=== PATIENT | female | born 1980 | race Caucasian/White ===

== ENCOUNTER 2018-01-30 17:02 | Emergency (ER) | payer OTHER ==
[~2018-01-30] VITALS: Ht 160 cm; Wt 69.0 kg
[~2018-01-30 17:02] MED LIST: ACETAMINOPHEN-1 EAC1 PO; ALBUTEROL2.5 MG/0.1 INH; ATIVAN0.5 MG; AUGMENTIN 875875 MG PO; AZITHROMYCIN 2250 MG PO; BENADRYL25 MG; CARAFATE 1 GM TA1 G1; CLONAZEPAM 0.50.5 M1 PO; CLONAZEPAM 1 MG1 M1 PO; FLORINEF ACETA0.1 MG PO; HYDROCODONE-ACE15 ML; IBUPROFEN 400400 M1 PO; KLOR-CON 1010 MEQ PO; LEVAQUIN 500 M500 MG PO; MAGOX 400400 MG PO; MUCINEX600 MG PO; NAPROSYN500 MG PO; NORCO 5-325 TA1 EACH PO; NYQUIL D COLD295 ML PO; PAXIL10 MG PO; POTASSIUM20; POTASSIUM40 MEQ/11 PO; PREDNISONE 20 M20 M1 PO; PREDNISONE50 MG PO; PRILOSEC10 MG PO; PROAIR HFA8.5 GM INH; PROZAC 20 MG20 MG; ROBAXIN500 MG PO; SENNA S TABLET1 EACH PO; TESSALON PERLE100 MG PO; TUSSIONEX PENN473 ML PO; TUSSIONEX PENNKI1 ML PO; TYLENOL325 MG; VENTOLIN HFA 1818 GM INH; ZOFRAN ODT4 MG PO; ZOLOFT25 MG PO; ZPAK PO
[2018-01-30] MEDS ORDERED: ZANAFLEX2 MG PO (17:14)
[2018-01-30 17:39] LABS: HEMATOCRIT 43.4 % (37.0-47.0); HEMOGLOBIN 15.2 gm/dL (12.0-15.0); MCH 31.8 pg (26.0-34.0); MCV 90.9 fL (80.0-100.0); MPV 7.7 fl. (7.2-11.1); NUCLEATED RBCS 0 /100WBC; PLATELET COUNT* 155 thou/uL (150-400); RBC 4.78 mil/uL (4.20-5.00); RDW-CV 12.3 % (10.5-14.5); WBC 8.7 thou/uL (4.0-11.0)
[2018-01-30 17:42] LABS: URINE BILIRUBIN NEGATIVE (Negative); URINE BLOOD 1+ (Negative); URINE CLARITY CLEAR; URINE COLOR YELLOW; URINE GLUCOSE-RANDOM NEGATIVE (Negative); URINE KETONES NEGATIVE (Negative); URINE LEUKOCYTES-REFLEX NEGATIVE (Negative); URINE NITRITE-REFLEX NEGATIVE (Negative); URINE PROTEIN NEGATIVE (Negative); URINE SPECIFIC GRAVITY 1.015 (1.005-1.030); URINE UROBILINOGEN 0.2 E.U./dl (0.2-1.0)
[2018-01-30 17:48] LABS: ANION GAP 8 mmol/L (7-16); BUN 8 mg/dL (7-18); CALCIUM 9.1 mg/dL (8.5-10.1); CHLORIDE 101 mmol/L (98-107); CO2 28 mmol/L (21-32); CREATININE 0.8 mg/dL (0.6-1.3); GLUCOSE 103 mg/dL (70-99); SODIUM 137 mmol/L (136-145)
[2018-01-30 17:54] LABS: ALBUMIN 3.4 g/dL (3.4-5.0); ALKALINE PHOSPHATASE 95 U/L (46-116); LIPASE 93 U/L (73-393); SGOT 18 U/L (15-37); SGPT 24 U/L (30-65); TOTAL BILIRUBIN 0.4 mg/dL (<0.1-1.0); TOTAL PROTEIN 8.3 g/dL (6.4-8.2); TROPONIN-I LEVEL <0.06 ng/mL (<0.06)
[2018-01-30 18:00] LABS: BACTERIA-REFLEX 1-9 Few /HPF (None Seen); CASTS None Seen /LPF (None Seen); CRYSTALS None Seen /LPF (None Seen); SQUAMOUS 0-3 Few /LPF (0-3); URINE RBC 0-2 Rare /HPF (0-2); URINE WBC-REFLEX 0-5 Rare /HPF (0-5)
[2018-01-30 18:02] LABS: ABSOLUTE LYMPHOCYTES 0.6 thou/uL (0.8-5.3); ABSOLUTE MONOCYTES 0.5 thou/uL (0.0-1.2); ABSOLUTE NEUTROPHILS 7.6 thou/uL (1.6-8.1)
[2018-01-30 18:03] LABS: PLATELET ESTIMATE ADEQUATE
[2018-01-30] MEDS ORDERED: HYDROCODONE-AP1 EAC6 PO (18:17)
[2018-01-30 18:51] VITALS: BP 116/70
== END 2018-01-30 18:54 | disposition home or self-care (01) ==
LOC: M.ERS 17:02
PROVIDERS: Physician Assistant
DX: R10.12 Left upper quadrant pain (principal); J45.909 Unspecified asthma, uncomplicated; F41.9 Anxiety disorder, unspecified; F17.210 Nicotine dependence, cigarettes, uncomplicated; Z90.710 Acquired absence of both cervix and uterus; Z90.49 Acquired absence of other specified parts of digestive tract; Z98.890 Other specified postprocedural states; Z91.041 Radiographic dye allergy status; Z91.040 Latex allergy status; Z88.8 Allergy status to other drugs, medicaments and biological substances; Z88.5 Allergy status to narcotic agent; Z88.6 Allergy status to analgesic agent

== ENCOUNTER 2018-08-27 15:22 | Emergency (ER) | payer OTHER ==
[~2018-08-27] VITALS: Ht 160 cm; Wt 71.7 kg
[~2018-08-27 15:22] MED LIST changes: +HYDROCODONE-AP1 EAC6 PO; +ZANAFLEX2 MG PO
[2018-08-27] MEDS ORDERED: FLEXERIL PO (15:31)
[2018-08-27 16:13] LABS: ABSOLUTE LYMPHOCYTES 2.3 thou/uL (0.8-5.3); ABSOLUTE MONOCYTES 0.4 thou/uL (0.0-1.2); ABSOLUTE NEUTROPHILS 4.3 thou/uL (1.6-8.1); BASOPHILS 0.3 %; EOSINOPHILS 0.3 %; HEMATOCRIT 43.1 % (37.0-47.0); LYMPHOCYTES 32.3 %; MCH 31.2 pg (26.0-34.0); MCHC 34.7 g/dL (28.0-37.0); MCV 89.7 fL (80.0-100.0); MPV 8.1 fl. (7.2-11.1); NUCLEATED RBCS 0 /100WBC; PLATELET COUNT* 219 thou/uL (150-400); POLYS 61.1 %; RDW-CV 12.5 % (10.5-14.5); WBC 7.1 thou/uL (4.0-11.0)
[2018-08-27 16:18] LABS: ANION GAP 8 mmol/L (7-16); BUN 8 mg/dL (7-18); CHLORIDE 104 mmol/L (98-107); CO2 25 mmol/L (21-32); CREATININE 0.9 mg/dL (0.6-1.3); GLUCOSE 124 mg/dL (70-99); POTASSIUM 3.4 mmol/L (3.5-5.1); SODIUM 137 mmol/L (136-145)
[2018-08-27 16:25] LABS: ALBUMIN 3.5 g/dL (3.4-5.0); ALKALINE PHOSPHATASE 90 U/L (46-116); LIPASE 119 U/L (73-393); SGOT 16 U/L (15-37); SGPT 18 U/L (30-65); TOTAL BILIRUBIN 0.2 mg/dL (<0.1-1.0); TOTAL PROTEIN 7.8 g/dL (6.4-8.2); TROPONIN-I LEVEL <0.06 ng/mL (<0.06)
[2018-08-27 16:34] LABS: URINE BILIRUBIN NEGATIVE (Negative); URINE BLOOD TRACE (Negative); URINE CLARITY CLEAR; URINE COLOR STRAW; URINE GLUCOSE-RANDOM NEGATIVE (Negative); URINE KETONES NEGATIVE (Negative); URINE LEUKOCYTES-REFLEX NEGATIVE (Negative); URINE NITRITE-REFLEX NEGATIVE (Negative); URINE PROTEIN NEGATIVE (Negative); URINE SPECIFIC GRAVITY <= 1.005 (1.005-1.030); URINE UROBILINOGEN 0.2 E.U./dl (0.2-1.0)
[2018-08-27 16:42] LABS: AMP/METHAMP Negative (Negative); BARBITURATES Negative (Negative); BENZODIAZEPINES Negative (Negative); COCAINE Negative (Negative); METHADONE Negative (Negative); OPIATES Negative (Negative); PCP Negative (Negative); THC Negative (Negative)
[2018-08-27 20:23] VITALS: BP 106/62
--- NOTE | 2018-08-28 10:49 | EKG ---
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1980 Requested By: Jennifer Ngo Order Number: [id number] MD: Antelmo Peralta Measurements Intervals Cunningham Rate: 113 P: 67 CO: 142 QRS: 58 QRSD: 79 T: 28 QT: 317 QTc: 435 Interpretive Statements Sinus tachycardia Probable left atrial enlargement Compared to ECG 04/02/2017 17:02:30 No significant changes Electronically Signed On 08-28-2018 10:49:11 MACHINE WORKER by Antelmo Peralta [email or web address] <ELECTRONICALLY SIGNED> By: Antelmo Peralta MD, [facility] 08/28/18 1049 [id number] 152 Antelmo Peralta MD, FACC /EPI
== END 2018-08-27 20:25 | disposition home or self-care (01) ==
LOC: M.ERS 15:22
PROVIDERS: Personal Emergency Response Attendant
DX: F41.9 Anxiety disorder, unspecified (principal); R07.89 Other chest pain; F17.210 Nicotine dependence, cigarettes, uncomplicated; J45.909 Unspecified asthma, uncomplicated; K21.9 Gastro-esophageal reflux disease without esophagitis; Z91.041 Radiographic dye allergy status; Z88.8 Allergy status to other drugs, medicaments and biological substances; Z91.040 Latex allergy status; Z88.6 Allergy status to analgesic agent; Z98.890 Other specified postprocedural states; Z90.49 Acquired absence of other specified parts of digestive tract; Z90.710 Acquired absence of both cervix and uterus